=== PATIENT | male | born 1970 | race Caucasian/White ===

== ENCOUNTER → 2017-10-19 11:33 | Emergency (ER) | payer SELFPAY ==
[~2017-10-19 11:33] MED LIST: Tetan/Diph/Pertus SYR(Tdap)* 0.5 ML SYR(BOOSTRIX) use SYR IM ONE
[2017-10-19 12:32] LABS: ABS Basophils 0.1 10^3/ul (0-0.2); ABS Eosinophils 0.3 10^3/ul (0-0.6); ABS Lymphocytes 1.1 10^3/ul (1.0-4.8); ABS Monocytes 0.7 10^3/ul (0-0.8); ABS Nucleated RBC 0 10^3/ul; Eosinophil % 4.1 % (0-6); Hematocrit 44 % (42-52); Hemoglobin 15.3 g/dl (14.0-18.0); Lymphocyte % 13.2 % (25-47); Mean Corpuscular HGB Conc 35 g/dl (31-36); Mean Corpuscular Hemoglobin 30 pg (27-31); Mean Corpuscular Volume 85 fL (80-94); Mean Platelet Volume 8.3 um3 (7.4-10.4); Nucleated Red Blood Cells % 0.1; Platelet Count 236 10^3/ul (150-450); Red Blood Count 5.19 10^6/ul (4.0-5.4); Red Cell Distribution Width 13 % (10.5-15); White Blood Count 8.2 10^3/ul (3.5-10.8)
[2017-10-19 13:03] LABS: EGFR Non-African American 98.9 (>60)
[2017-10-19 14:11] VITALS: BP 00/00
--- NOTE | 2017-10-19 14:32 | ED ---
Andreas Garrett Tecjoon, scribed for Shayan Del Castillo MD on 10/19/17 at 1158 . - HPI Summary HPI Summary: This patient is a 47 year old male presenting to [facility] accompanied by sergeant with a chief complaint of needlestick since approx. a few hours ago. 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 Suspects state that the needle was used to suck heroin out of tin and had not made contact with human skin/blood. Patient is still worried about various infections. - History of Current Complaint Chief Complaint: EDExposureBodyFluid Stated Complaint: EXPOSURE Time Seen by Provider: 10/19/17 11:47 Date of Incident: 10/19/17 Job Performing at Time of Incident: Searching car Needlestick: Hollow Needle Blood on Needle: No Depth of Needlestick: Scratch Bleeding at Site: Yes Body Fluid Exposure: Blood Treatment CST: Expressed Blood PMH/Surg Hx/FS Hx/Imm Hx Previously Healthy: Yes Endocrine/Hematology History: Reports: Hx Anticoagulant Therapy - Aspirin Cardiovascular History: Reports: Hx Hypertension Infectious Disease History: No Infectious Disease History: Denies: Traveled Outside the [place] in Last 30 Days - Family History Known Family History: Positive: Hypertension - Social History Occupation: Employed Full-time Lives: With Family Alcohol Use: None Hx Substance Use: No Substance Use Type: Reports: None Hx Tobacco Use: No Smoking Status (MU): Never Smoked Tobacco Review of Systems Negative: Fever Positive: Other - needlestick on left index finger All Other Systems Reviewed And Are Negative: Yes Physical Exam - Summary Physical Exam Summary: Appearance: Well appearing, no pain distress Skin: warm, dry, reflects adequate perfusion Head/face: normal Eyes: EOMI, ROBERTO ENT: normal Neck: supple, non-tender Respiratory: CTA, breath sounds present Cardiovascular: RRR, pulses symmetrical Abdomen: non-tender, soft Bowel Sounds: present Musculoskeletal: normal, strength/ROM intact Neuro: normal, sensory motor intact, A&Ox3 Triage Information Reviewed: Yes Vital Signs On Initial Exam: Initial Vitals Temp Pulse Resp BP Pulse Ox 97.5 F 81 17 133/86 97 10/19/17 11:36 10/19/17 11:36 10/19/17 11:36 10/19/17 11:36 10/19/17 11:36 Vital Signs Reviewed: Yes Diagnostics - Vital Signs Vital Signs Temp Pulse Resp BP Pulse Ox 10/19/17 11:36 97.5 F 81 17 133/86 97 - Laboratory Lab Results: Lab Results 10/19/17 10/19/17 10/19/17 Range/Units 12:15 12:15 12:15 WBC 8.2 (3.5-10.8) 10^3/ul RBC 5.19 (4.0-5.4) 10^6/ul Hgb 15.3 (14.0-18.0) g/dl Hct 44 (42-52) % MCV 85 (80-94) fL MCH 30 (27-31) pg MCHC 35 (31-36) g/dl RDW 13 (10.5-15) % Plt Count 236 (150-450) 10^3/ul MPV 8.3 (7.4-10.4) um3 Neut % (Auto) 73.5 (38-83) % Lymph % (Auto) 13.2 L (25-47) % Concho % (Auto) 8.5 H (0-7) % Eos % (Auto) 4.1 (0-6) % Baso % (Auto) 0.7 (0-2) % Absolute Neuts (auto) 6.0 (1.5-7.7) 10^3/ul Absolute Lymphs (auto) 1.1 (1.0-4.8) 10^3/ul Absolute Monos (auto) 0.7 (0-0.8) 10^3/ul Absolute Eos (auto) 0.3 (0-0.6) 10^3/ul Absolute Basos (auto) 0.1 (0-0.2) 10^3/ul Absolute Nucleated RBC 0 10^3/ul Nucleated RBC % 0.1 Sodium 137 L (139-145) mmol/L Potassium 3.9 (3.5-5.0) mmol/L Chloride 103 (101-111) mmol/L Carbon Dioxide 28 (22-32) mmol/L Anion Gap 6 (2-11) mmol/L BUN 11 (6-24) mg/dL Creatinine 0.83 (0.67-1.17) mg/dL Est GFR ( Amer) 127.2 (>60) Est GFR (Non-Af Amer) 98.9 (>60) BUN/Creatinine Ratio 13.3 (8-20) Glucose 94 (70-100) mg/dL Calcium 9.0 (8.6-10.3) mg/dL Total Bilirubin 1.00 (0.2-1.0) mg/dL AST 24 (13-39) U/L ALT 36 (7-52) U/L Alkaline Phosphatase 79 (34-104) U/L Total Protein 6.9 (6.4-8.9) g/dL Albumin 4.8 (3.2-5.2) g/dL Globulin 2.1 (2-4) g/dL Albumin/Globulin Ratio 2.3 (1-3) Hepatitis B Antibody Not immune A (Immune) Hep Bs Antigen Nonreactive (Nonreactive) Hep Bs Antibody, Quant < 3.10 (>12) mIU/mL Hepatitis C Antibody Pending HIV 1&2 Antibody Rapid Nonreactive (Nonreactive) Result Diagrams: 10/19/17 12:15 10/19/17 12:15 Lab Statement: Any lab studies that have been ordered have been reviewed, and results considered in the medical decision making process. Needlestick Course/Dx - Course Course Of Treatment: This patient is a 47 year old male presenting to [facility] accompanied by sergeant with a chief complaint of needlestick since approx. a few hours ago. 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 Bloodwork Obtained. Test results with no significant abnormalities. In the ED course the patient was given Boostrix. Patient will be discharged with a diagnosis of needlestick injury. Called [facility] -- they are unavailable. Counseled pt regarding PEP, knowing sources are - HIV. Pt refused PEP. Patient is advised to follow up with PCP in 3 days. The patient is agreeable with this plan. - Diagnoses Provider Diagnoses: Needlestick injury accident Discharge - Sign-Out/Discharge Documenting (check all that apply): Discharge - Discharge Plan Condition: Good Disposition: HOME Patient Education Materials: Postexposure Prophylaxis (ED) Referrals: Eileen GARCIA,Jax Gomez [Medical Doctor] - Additional Instructions: Your employer may have an occupational health doctor -- if so, get all follow up testing thru them. Return if worse, new symptoms or other concerns. - Billing Disposition and Condition Condition: GOOD Disposition: HOME The documentation as recorded by the Andreas grajeda Tecjoon accurately reflects the service I personally performed and the decisions made by , Shayan Del Castillo MD.
== END | disposition home or self-care (01) ==
LOC: ED 11:33
DX: S61.231A Puncture wound without foreign body of left index finger without damage to nail, initial encounter (principal); W46.1XXA Contact with contaminated hypodermic needle, initial encounter; Y92.89 Other specified places as the place of occurrence of the external cause
CPT/HCPCS: 36415; 80053; 85025; 86703; 86706; 86803; 87340; 90471; 90715; 99281

== ENCOUNTER 2017-11-21 10:33 | Emergency (ER) | payer SELFPAY ==
[2017-11-21 10:38] VITALS: BP 128/86
--- NOTE | 2017-11-21 10:45 | ED ---
Complex/Multi-Sys Presentation - HPI Summary HPI Summary: 39 male presents ER to have repeat blood work obtained after getting a needlestick 30 days ago. Patient was seen after the needlestick 30 days ago. States he needs repeat labs at 3 days, 3 months, 6 months. States everything was negative and the beginning including potential source patient's. No symptoms and no concerns. - History Of Current Complaint Chief Complaint: EDExposureBodyFluid Time Seen by Provider: 11/21/17 10:40 Hx Obtained From: Patient Severity Currently: None - Allergies/Home Medications Allergies/Adverse Reactions: Allergies Allergy/AdvReac Type Severity Reaction Status Date / Time meperidine [From Demerol] Allergy See Comment Verified 10/19/17 11:42 PMH/Surg Hx/FS Hx/Imm Hx Endocrine/Hematology History: Reports: Hx Anticoagulant Therapy - Aspirin Cardiovascular History: Reports: Hx Hypertension - Surgical History Surgery Procedure, Year, and Place: n/a - Immunization History Immunizations Up to Date: Yes Infectious Disease History: No Infectious Disease History: Denies: Traveled Outside the US in Last 30 Days - Family History Known Family History: Positive: Hypertension - Social History Alcohol Use: None Hx Substance Use: No Substance Use Type: Reports: None Hx Tobacco Use: No Smoking Status (MU): Never Smoked Tobacco Review of Systems Constitutional: Negative Cardiovascular: Negative Respiratory: Negative Gastrointestinal: Negative Musculoskeletal: Negative All Other Systems Reviewed And Are Negative: Yes Physical Exam Triage Information Reviewed: Yes Vital Signs On Initial Exam: Initial Vitals Temp Pulse Resp BP Pulse Ox 97.6 F 75 16 128/86 100 11/21/17 10:35 11/21/17 10:35 11/21/17 10:35 11/21/17 10:35 11/21/17 10:35 Vital Signs Reviewed: Yes Appearance: Positive: Well-Appearing, No Pain Distress, Well-Nourished Skin: Positive: Warm, Skin Color Reflects Adequate Perfusion, Dry Head/Face: Positive: Normal Head/Face Inspection ENT: Positive: Normal ENT inspection, Hearing grossly normal, Pharynx normal Neck: Positive: Supple, Nontender Respiratory/Lung Sounds: Positive: Clear to Auscultation, Breath Sounds Present. Negative: Rales, Rhonchi, Wheezes Cardiovascular: Positive: Normal, RRR, Pulses are Symmetrical in both Upper and Lower Extremities Abdomen Description: Positive: Nontender, Soft Bowel Sounds: Positive: Present Musculoskeletal: Positive: Normal, Strength/ROM Intact Neurological: Positive: Normal, Sensory/Motor Intact, Alert, Oriented to Person Place, Time Diagnostics - Vital Signs Vital Signs Temp Pulse Resp BP Pulse Ox 11/21/17 10:35 97.6 F 75 16 128/86 100 - Laboratory Lab Statement: Any lab studies that have been ordered have been reviewed, and results considered in the medical decision making process. Complex Multi-Symp Course/Dx Course Of Treatment: Repeat hepatitis and HIV labs were obtained. We'll wait for results and if positive patient will get a phone call. Is asymptomatic at this time. Return in 60 days for 3 month blood work - Diagnoses Provider Diagnoses: Normal physical examination, Encounter for HCV screening test for low risk patient Discharge - Sign-Out/Discharge Documenting (check all that apply): Discharge/Admit/Transfer - Discharge Plan Condition: Good Disposition: HOME Referrals: Abisai Thompson MD [Primary Care Provider] - Additional Instructions: please return for repeat blood work in 60 days you will hear about results if positive. - Billing Disposition and Condition Condition: GOOD Disposition: HOME
== END 2017-11-21 10:53 | disposition home or self-care (01) ==
LOC: ED 10:33
DX: Z77.21 Contact with and (suspected) exposure to potentially hazardous body fluids (principal)
CPT/HCPCS: 36415; 80074; 86703; 86706; 87340; 99281

== ENCOUNTER 2018-01-17 10:42 | Emergency (ER) | payer OTHER ==
[2018-01-17 11:07] VITALS: BP 128/85
--- NOTE | 2018-01-17 14:07 | ED ---
Kael Garrett Angela, scribed for Shayan Del Castillo MD on 01/17/18 at 1047 . - HPI Summary HPI Summary: This pt is a 47 y/o male presenting to [facility] for a repeat blood work 3 months s/ p needlestick injury. 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 The needle was an old needle. He was seen on 11/21/17 for a repeat blood work. Pt denies any symptoms currently. He states he has been feeling well after the needlestick injury. PMHx: HTN, high cholesterol. 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 PMH/Surg Hx/FS Hx/Imm Hx Endocrine/Hematology History: Reports: Hx Anticoagulant Therapy - Aspirin Denies: Hx Diabetes Cardiovascular History: Reports: Hx Hypertension, Other Cardiovascular Problems/ Disorders - High cholesterol GI History: Reports: Hx Gastroesophageal Reflux Disease - Surgical History Surgery Procedure, Year, and Place: n/a - Family History Known Family History: Positive: Hypertension - Social History Alcohol Use: None Hx Substance Use: No Substance Use Type: Reports: None Hx Tobacco Use: No Smoking Status (MU): Never Smoked Tobacco Review of Systems Negative: Fever, Chills ENT: Negative Cardiovascular: Negative Respiratory: Negative Gastrointestinal: Negative Genitourinary: Negative Musculoskeletal: Negative All Other Systems Reviewed And Are Negative: Yes Physical Exam - Summary Physical Exam Summary: Appearance: Well appearing, no pain distress Skin: warm, dry, reflects adequate perfusion Head/face: normal Eyes: EOMI, ROBERTO ENT: normal Neck: supple, non-tender Respiratory: CTA, breath sounds present Cardiovascular: RRR, pulses symmetrical and regular Abdomen: non-tender, soft Bowel: present Musculoskeletal: normal, strength/ROM intact Neuro: normal, sensory motor intact, A&Ox3 Triage Information Reviewed: Yes Vital Signs On Initial Exam: Initial Vitals Temp Pulse Resp BP Pulse Ox 96.9 F 71 19 132/96 97 01/17/18 10:47 01/17/18 10:47 01/17/18 10:47 01/17/18 10:47 01/17/18 10:47 Vital Signs Reviewed: Yes Diagnostics - Vital Signs Vital Signs Temp Pulse Resp BP Pulse Ox 01/17/18 10:59 96.9 F 74 18 128/85 96 01/17/18 10:47 96.9 F 71 19 132/96 97 - Laboratory Lab Results: Lab Results 01/17/18 Range/Units 10:58 Hepatitis B Antibody Not immune A (Immune) Hep Bs Antibody, Quant < 3.10 (>12) mIU/mL Hepatitis C Antibody Nonreactive (Nonreactive) HIV 1&2 Antibody Pending Lab Statement: Any lab studies that have been ordered have been reviewed, and results considered in the medical decision making process. Needlestick Course/Dx - Course Course Of Treatment: Here for follow-up after a needlestick injury in the field. Has not followed up with his doctor or public health. Repeated hep B given he was not a responder to vaccination, C and HIV. His prior laboratories were all negative. - Diagnoses Provider Diagnoses: Needlestick injury accident with exposure to body fluid Discharge - Sign-Out/Discharge Documenting (check all that apply): Discharge/Admit/Transfer - Discharge - Discharge Plan Condition: Good Disposition: HOME Patient Education Materials: Needle Stick Injuries (ED) Referrals: Abisai Thompson MD [Primary Care Provider] - Additional Instructions: See your doctor to initiate hepatitis B vaccine series. Your doctor can continue the post exposure surveillance. - Billing Disposition and Condition Condition: GOOD Disposition: Home The documentation as recorded by the Kael grajeda Angela accurately reflects the service I personally performed and the decisions made by , Shayan Del Castillo MD.
== END 2018-01-17 10:59 | disposition home or self-care (01) ==
LOC: ED 10:42
DX: T14.8XXA Other injury of unspecified body region, initial encounter (principal); W46.0XXA Contact with hypodermic needle, initial encounter; Y93.89 Activity, other specified; Y92.810 Car as the place of occurrence of the external cause; Y99.0 Civilian activity done for income or pay
CPT/HCPCS: 36415; 86703; 86706; 86707; 86803; 99282

== ENCOUNTER 2018-04-27 09:06 | Emergency (ER) | payer OTHER ==
[2018-04-27 09:34] VITALS: BP 127/91
--- NOTE | 2018-04-27 09:49 | ED ---
- HPI Summary HPI Summary: Patient is a 47-year-old male who presents emergency department for follow-up blood work. Knee needlestick that occurred in October. 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 Pt. has been following up in the ER for repeat testing of hepatitis and HIV. Pt. has no complaints today. Symptoms are mild in severity. Reactivity has been negative thus far. No current modifying factors. - History of Current Complaint Chief Complaint: EDGeneral Stated Complaint: NEEDLE STICK/NEEDS BLOODWORK Time Seen by Provider: 04/27/18 09:38 PMH/Surg Hx/FS Hx/Imm Hx Previously Healthy: Yes Endocrine/Hematology History: Reports: Hx Anticoagulant Therapy - Aspirin Denies: Hx Diabetes Cardiovascular History: Reports: Hx Hypertension, Other Cardiovascular Problems/ Disorders - High cholesterol GI History: Reports: Hx Gastroesophageal Reflux Disease - Surgical History Surgery Procedure, Year, and Place: n/a Infectious Disease History: No Infectious Disease History: Denies: Traveled Outside the US in Last 30 Days - Family History Known Family History: Positive: Hypertension - Social History Alcohol Use: None Hx Substance Use: No Substance Use Type: Reports: None Hx Tobacco Use: No Smoking Status (MU): Never Smoked Tobacco Review of Systems All Other Systems Reviewed And Are Negative: Yes Physical Exam Triage Information Reviewed: Yes Vital Signs On Initial Exam: Initial Vitals Temp Pulse Resp BP Pulse Ox 97.9 F 82 17 127/91 97 04/27/18 09:28 10 09:28 10 09:28 04/27/18 09:28 04/27/18 09:28 Vital Signs Reviewed: Yes Appearance: Positive: Well-Appearing - Pt. sitting on bed in NAD. Skin: Positive: Warm, Dry Head/Face: Positive: Normal Head/Face Inspection Eyes: Positive: Normal, EOMI Neck: Positive: Supple Neurological: Positive: Normal, CN Intact II-III Psychiatric: Positive: Affect/Mood Appropriate Diagnostics - Vital Signs Vital Signs Temp Pulse Resp BP Pulse Ox 04/27/18 09:28 97.9 F 82 17 127/91 97 - Laboratory Lab Statement: Any lab studies that have been ordered have been reviewed, and results considered in the medical decision making process. Needlestick Course/Dx - Course Course Of Treatment: Blood work ordered. Pt. to f.u with PCP. - Diagnoses Provider Diagnoses: Needlestick injury accident Discharge - Sign-Out/Discharge Documenting (check all that apply): Patient Departure - Discharge Plan Condition: Good Disposition: HOME Patient Education Materials: Needle Stick Injuries (ED) Referrals: Abisai Thompson MD [Primary Care Provider] - - Billing Disposition and Condition Condition: GOOD Disposition: Home
--- OUTSIDE RECORDS SUMMARY | 2018-04-27 09:52 | XMS REPORT | Continuity of Care Document ---
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 Abisai Thompson MD Primary Care Physician Unavailable Payers Type Date Identification Numbers Payment Provider Subscriber Effective: Policy Number: [id number] [facility] 2013 Group Name: [id number] [facility] [id number] PayID: [id number] ZANDRA Elise [id number] Advance Directives Description No Information Available Problems Date Description Provider Status Onset: 04/17/2018 Gastroesophageal reflux disease Kelli Saucedo MD Active Family History Description No Information Available Social History Type Date Description Comments Sex Unknown ETOH Use Occasionally consumes alcohol Tobacco Use Start: Unknown Patient has never smoked Smoking Status Reviewed: 04/17/18 Patient has never smoked Allergies, Adverse Reactions, Alerts Date Description Reaction Status Severity Comments 04/13/2018 Demerol Active Medications Medication Date Status Form Strength Qnty SIG Indications Ordering Provider Pantoprazole Active Tablets DR 40mg 1 by Unknown Sodium 000 mouth every day Lisinopril 0 Active Tablets 10mg 1 by Unknown 000 mouth every day Crestor 0 Active Tablets 40mg 1 by Unknown 000 mouth every day Tylenol Extra Hx Tablets 500mg 2 twice a Unknown Strength 000 - day as needed 018 Immunizations Description No Information Available Vital Signs Date Vital Result Comment 04/17/2018 10:25am BP Systolic 118 mmHg BP Diastolic 81 mmHg Heart Rate 77 /min Height 70 inches 5'10" Weight 210.00 lb BMI (Body Mass Index) 30.1 kg/m2 Body Temperature 97.2 F Results Description No Information Available Procedures Description No Information Available Encounters Description No Information Available Plan of Treatment Future Appointment(s):07/31/2018 7:45 am - Kelli Saucedo MD at [place] [address]
== END 2018-04-27 10:25 | disposition home or self-care (01) ==
LOC: ED 09:06
DX: S89.90XA Unspecified injury of unspecified lower leg, initial encounter (principal); W46.0XXA Contact with hypodermic needle, initial encounter; Y92.89 Other specified places as the place of occurrence of the external cause; Y99.0 Civilian activity done for income or pay; Z79.82 Long term (current) use of aspirin; I10 Essential (primary) hypertension; E78.00 Pure hypercholesterolemia, unspecified; K21.9 Gastro-esophageal reflux disease without esophagitis
CPT/HCPCS: 36415; 82607; 83735; 86703; 86706; 86707; 86803; 99282

== ENCOUNTER 2019-08-02 13:06 | Emergency (ER) | payer SELFPAY ==
--- OUTSIDE RECORDS SUMMARY | 2019-08-02 13:27 | XMS REPORT | Continuity of Care Document ---
:1970 External Reference #:[id number] Author Name Abisai Thompson M.D. Address [address] [place] [address], [address] [place] [address] Care Team Providers Name Role Phone Chago Billy M.D. - Care Team Information Film Maker [phone] Cardiovascular Disease [facility] Care Team Information Film Maker [phone] Kelli Saucedo M.D. - Care Team Information Film Maker [phone] Gastroenterology Solo Martinez MD - Urology Care Team Information Film Maker [phone] Problems Active Problems Provider Date Mixed hyperlipidemia Yonas Ruff M.D. Onset: 01/05/2011 Benign essential hypertension Yonas Ruff M.D. Onset: 01/05/2011 Gastroesophageal reflux disease Anne Paulson R.N.,F.N.P. Onset: 2010 Essential hypertension [facility] Onset: 05/16/2015 Social History Type Date Description Comments Sex Unknown Cigarette Use Negative For current cigarette smoker ETOH Use Rarely consumes alcohol Tobacco Use Start: Unknown Patient has never smoked Smoking Status Reviewed: 07/27/19 Patient has never smoked Allergies, Adverse Reactions, Alerts Active Allergies Reaction Severity Comments Date Demerol 09/18/2003 Medications Active Medications SIG Qnty Indications Ordering Date Provider Rosuvastatin Calcium Take 1 Tablet By margaret Soria 07/26/2018 Mouth Once Daily M.DJb 40mg Tablets Lisinopril 1 by mouth every Chago Billy 10mg Tablets justin Dominguez M.D. Nizatidine 1-2 times daily Unknown 150mg prn for heartburn Capsules Immunizations CPT Code Status Date Vaccine Lot # [id number] Ordered 04/11/2017 Afluria, 0.5mL Flu Vaccine Vital Signs Date Vital Result Comment 07/27/2019 10:50am Weight 203.00 lb Height 69 inches 5'9" BP Systolic 122 mmHg BP Diastolic 86 mmHg Heart Rate 82 /min Respiratory Rate 18 /min BMI (Body Mass Index) 30.0 kg/m2 07/17/2018 10:41am Weight 203.00 lb Height 69 inches 5'9" BP Systolic 114 mmHg BP Diastolic 72 mmHg Heart Rate 75 /min BMI (Body Mass Index) 30.0 kg/m2 Results Test Acquired Date Facility Test Result H/L Range Note Laboratory test 07/27/2019 [facility] PSA 0.82 ng/mL 0-4.0 1 finding [address] [place] [address] [phone] Lipid Studies 07/27/2019 [facility] Triglycerides 93 mg/dL 0-149 [address] [place] [address] [phone] Cholesterol 133 mg/dL 120-200 HDL Cholesterol 47.0 mg/dL 40-60 VLDL (Calc.) 19 mg/dL <31 Cholesterol/HDL 2.83 Ratio <5.00 LDL (Calc.) 67 mg/dL 0-99 2 Comp. Metabolic 07/27/2019 [facility] Glucose 91.0 mg/dL 65 -110 [address] [place] [address] [phone] BUN 14.8 mg/dL 7-21 Co2 25.2 mmol/L 22-30 Sodium 142 mmol/L 137-145 Potassium 4.6 mmol/L 3.6-5.2 Chloride 106 mmol/L 98-110 Calcium 9.8 mg/dL 9-10.8 Creatinine 0.93 mg/dL 0.52-1.25 eGFR (Male) >60 3 Total Protein 6.91 g/dL 6.3-8.2 Albumin 4.37 g/dL 3.3-4.6 Sgot (Ast) 27.0 U/L 5-40 Alk Phosphatase 79.0 U/L 38-126 Total Bilirubin 0.82 mg/dL 0.2-1.3 SGPT (Alt) 40.0 U/L 7-56 Anion Gap (Calc) 10.8 7-16 BUN/Crea Ratio 15.9 Ratio 7-25 Globulin (Calc) 2.54 g/dL 2.3-3.5 A/G Ratio (Calc) 1.7 Ratio 1.1-2.2 Laboratory test 07/27/2019 [facility] TSH 0.81 uIU/mL 0.5- 6.[address] [place] [address] [phone] 1 mail copy to patient 2 LDL(Calc.) invalid if triglycerides >400. 3 For Patients, multiply result by 1.159 Units expressed as mL/min/1.73m^2 Normal Range is > or = to 60. Procedures Date Code Description Status 11/08/2014 [id number] Colonoscopy Completed Medical Devices Description No Information Available Encounters Type Date Location Provider Dx Diagnosis Office Visit 07/27/2019 Main Office Abisai Thompson M.D. Z00.00 Encntr for general 10:45a adult medical exam w/o abnormal findings I10 Essential (primary) hypertension E78.2 Mixed hyperlipidemia K21.9 Gastro-esophageal reflux disease without esophagitis Z12.5 Encounter for screening for malignant neoplasm of prostate Z71.3 Dietary counseling and surveillance Assessments Date Code Description Provider 07/27/2019 Z00.00 Encounter for general adult medical examination Abisai Thompson M.D. without abnormal findings 07/27/2019 I10 Essential (primary) hypertension Abisai Thompson M.D. 07/27/2019 E78.2 Mixed hyperlipidemia Abisai Thompson M.D. 07/27/2019 K21.9 Gastro-esophageal reflux disease without Abisai Thompson M.D. esophagitis 07/27/2019 Z12.5 Encounter for screening for malignant neoplasm Abisai Thompson M.D. of prostate 07/27/2019 Z71.3 Dietary counseling and surveillance Abisai Thompson M.D. 07/27/2019 Z12.5 Encounter for screening for malignant neoplasm Laboratory of prostate 07/27/2019 Z83.2 Family history of dis of the bld/bld-form Laboratory org/immun mechnsm 07/27/2019 E78.2 Mixed hyperlipidemia Laboratory Plan of Treatment Future Appointment(s):08/01/2020 8:30 am - Abisai Thompson M.D. at Main [id number] - Abisai Thompson M.D.Z00.00 Encounter for general adult medical examination without abnormal [id number] Essential (primary) lurcmdfpbcrxQ29.2 Mixed ydzrerjfaumxotB38.9 Gastro-esophageal reflux disease without nmdiyqnxhfkV68.5 Encounter for screening for malignant neoplasm of bpjffvcuC39.3 Dietary counseling and surveillanceAllFollow up:1 year 30 minutes COMPLETE, fasting blood work today Functional Status Description No Information Available Mental Status Description No Information Available Referrals Description No Information Available
--- OUTSIDE RECORDS SUMMARY | 2019-08-02 13:27 | XMS REPORT | Continuity of Care Document ---
:1970 Author Organization [facility] Care Team Providers Name Role Phone PARVIN WAN Consulting Physician KAYLAN BALLARD Admitting Physician KAYLAN BALLARD Attending Physician Allergies and Intolerances Code Code Allergy Type Reaction Severity Start End Status System Substance Date Date 416457 RXNorm Demerol Propensity to unknown Unknown Active adverse 0 reactions to drug (disorder) Medications RxNorm Medication Dose Route Instructions Start Date End Date Status 725474 Lisinopril 2.5 MG 2.5 mg oral orally every day at Active Oral Tablet bedtime 307077 pantoprazole 40 MG 40 mg oral orally every day at Active Delayed Release bedtime Oral Tablet 810940 Rosuvastatin 40 mg oral orally once daily Active calcium 40 MG Oral at bedtime Tablet Medications At Time Of Discharge RxNorm Medication Dose Route Instructions Start Date End Date Status 839545 Lisinopril 2.5 MG 2.5 mg oral orally every day at Active Oral Tablet bedtime 309535 pantoprazole 40 MG 40 mg oral orally every day at Active Delayed Release bedtime Oral Tablet 237271 Rosuvastatin 40 mg oral orally once daily Active calcium 40 MG Oral at bedtime Tablet Problems Code Code System Problem Name Start Date End Date Status 528978665 SNOMED-CT Near syncope 05/09/2013 U Active 33977275 SNOMED-CT Esophageal varices 09/15/2012 U Active 768008960 SNOMED-CT Atypical chest pain 07/31/2012 05:00 U Completed 967988839 SNOMED-CT Atypical chest pain 07/31/2012 05:00 Active 75819157 SNOMED-CT Atrial fibrillation U Active 68078061 SNOMED-CT Esophageal varices U Active 19243922 SNOMED-CT Hyperlipidemia U U Active 38692587 SNOMED-CT Benign hypertension U U Active 495965450 SNOMED-CT Paroxysmal atrial U U Active fibrillation 93238626 SNOMED-CT Hypertensive disorder U Active Procedures Code Code System Procedure Date ESOPHAGEAL VARICES CLIPPED 10/2012 Results Reference Laboratory Results Order: FACTOR 5 LEIDEN [SO] Specimen Source: Body Site: [facility] Code Test Result Flag Range Units Date 1F5 gene targeted Comment 07/27/2019 11:25:00 mutation anal AM Note: Result: Negative (no mutation found) . Factor V Leiden is a specific mutation ([id number]) in the factor V gene that is associated with an increased risk of venous thrombosis. Factor V Leiden is more resistant to inactivation by activated protein C. As a result, factor V persists in the circulation leading to a mild hyper- coagulable state. The Leiden mutation accounts for 90% - 95% of APC resistance. Factor V Leiden has been reported in patients with deep vein thrombosis, pulmonary embolus, central retinal vein occlusion, cerebral sinus thrombosis and hepatic vein thrombosis. Other risk factors to be considered in the workup for venous thrombosis include the [id number] mutation in the factor II (prothrombin) gene, protein S and C deficiency, and antithrombin deficiencies. Anticardiolipin antibody and lupus anticoagulant analysis may be appropriate for certain patients, as well as homocysteine levels. . Contact your local [facility] for information on how to order additional testing if desired. . Genetic counselors are available for health care providers to discuss results at [phone] ([phone]). . Methodology: DNA analysis of the Factor V gene was performed by allele-specific PCR. The diagnostic sensitivity and specificity is >99% for both. Molecular-based testing is highly accurate, but as in any laboratory test, diagnostic errors may occur. All test results must be combined with clinical information for the most accurate interpretation. . This test was developed and its performance characteristics [facility]. It has not been cleared or approved by the Food and Drug Administration. . References: Lennox Min (1995). Clin Lab Med 16:169-186. . Echo Cardenas, PhD, [facility] Shahana Schaeffer, PhD, [facility] Stephanie ChristopherS., PhD, FAC Sammie Farooq, PhD, [facility] Devante Pena, PhD, [facility] Marcell Juan PhD, [facility] Performing Lab Footnotes:[facility] [address] , [place] [id number] JAMIE [id number] Social History Code Code System Social History Description Dates Observed Observation [id number] SNOMED CT Current Smoking Unknown if ever Status smoked UNK AdministrativeGender Sex Assigned At Unknown Vital Signs No data in the system Goals Section No data in the system Health Concerns No data in the systemEncounter Diagnosis Date Code Code System Diagnosis Status Z83.2 ICD10 FAM HX DZ BLOOD&BFO D/O IMMUNE [facility] Active Advance Directives PT STATES NO ADVANCE DIRECTIVES Directive Type Effective Date 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 07/27/2019 Family History Relationship: Mother Health Problem Age At Onset Notes Adult diabetes diet Relationship: Brother Health Problem Age At Onset Notes Adult onset diabetes (Diabetes mellitus type 2) Relationship: Maternal Grandfather () Health Problem Age At Onset Notes CARDIAC Functional Status No data in the system Immunizations No data in the system Medical Equipment No data in the system Mental Status No data in the system Assessment and Plan Assessments No data in the systemPlan Of Treatment No data in the systemPending Tests No data in the system Hospital Discharge Instructions No data in the system Reason for Visit No data in the system
--- NOTE | 2019-08-02 14:10 | ED ---
Upper Extremity Pain - HPI Summary HPI Summary: The patient is a 48 y/o male presenting to [facility] with a chief complaint of pain in the left shoulder onset this morning. 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 He heard a popping noise in the shoulder, and he is now feeling pain in the left shoulder radiating into the neck and to the elbow. There is decreased ROM in the shoulder secondary to pain. He rates the soreness 7/10 in severity. He denies any fever, chills, erythema of eyes, sore throat, chest pain, shortness of breath, cough, abdominal pain, nausea, vomiting, dysuria, hematuria, myalgia , edema, rash, or dizziness. PMHx: HTN, HLD, GERD. Nonsmoker, no EtOH, no substance use. Medications reviewed. Allergies noted. - History of Current Complaint Chief Complaint: EDExtremityUpper Stated Complaint: LEFT SHOULDER INJURY PER PT Time Seen by Provider: 08/02/19 13:59 Hx Obtained From: Patient Mechanism Of Injury: Twisted Onset/Duration: Started Hours Ago, Still Present Timing: Constant Severity Initially: Mild Severity Currently: Moderate Pain Location: Shoulder, Arm Character: Aching Aggravating Factor(s): Movement Alleviating Factor(s): Rest Associated Signs & Symptoms: Positive: Neck Pain - radiating from shoulder. Negative: Fever, Chest Pain, SOB, Nausea, Vomiting, Other - chills, erythema of eyes, sore throat, cough, abdominal pain, nausea, vomiting, dysuria, hematuria, myalgia, edema, rash, dizziness - Allergies/Home Medications Allergies/Adverse Reactions: Allergies Allergy/AdvReac Type Severity Reaction Status Date / Time meperidine [From Demerol] Allergy See Comment Verified 08/02/19 13:21 PMH/Surg Hx/FS Hx/Imm Hx Endocrine/Hematology History: Reports: Hx Anticoagulant Therapy - Aspirin Denies: Hx Diabetes Cardiovascular History: Reports: Hx Hypercholesterolemia, Hx Hypertension, Other Cardiovascular Problems/Disorders - High cholesterol GI History: Reports: Hx Gastroesophageal Reflux Disease - Surgical History Surgical History: None Surgery Procedure, Year, and Place: n/a Infectious Disease History: No Infectious Disease History: Denies: Traveled Outside the [place] in Last 30 Days - Family History Known Family History: Positive: Hypertension - Social History Alcohol Use: None Hx Substance Use: No Substance Use Type: Reports: None Hx Tobacco Use: No Smoking Status (MU): Never Smoked Tobacco Review of Systems Negative: Fever, Chills Negative: Erythema Negative: Sore Throat Negative: Chest Pain Negative: Shortness Of Breath, Cough Negative: Abdominal Pain, Vomiting, Nausea Negative: dysuria, hematuria Positive: Myalgia - left shoulder into neck and elbow, Decreased ROM - left shoulder secondary to pain. Negative: Edema Negative: Rash Neurological: Other - Negative: dizziness All Other Systems Reviewed And Are Negative: Yes Physical Exam - Summary Physical Exam Summary: Constitutional: Well-developed, Well-nourished, Alert. (-) Distressed Skin: Warm, Dry HENT: Normocephalic; Atraumatic Eyes: Conjunctiva normal Neck: Musculoskeletal ROM normal neck. (-) JVD, (-) Stridor, (-) Tracheal deviation Cardio: Rhythm regular, rate normal, Heart sounds normal; Intact distal pulses; The pedal pulses are 2+ and symmetric. Radial pulses are 2+ and symmetric. (-) Murmur Pulmonary/Chest wall: Effort normal. (-) Respiratory distress, (-) Wheezes, (-) Rales Abd: Soft, (-) tenderness, (-) Distension, (-) Guarding, (-) Rebound Musculoskeletal: Slightly diminished strength of the left arm with elbow flexion , No biceps deformity (no suspicion for biceps tendon rupture), Diminished left shoulder ROM, (-) Edema Lymph: (-) Cervical adenopathy Neuro: Alert, Oriented x3 Psych: Mood and affect Normal Triage Information Reviewed: Yes Vital Signs On Initial Exam: Initial Vitals Temp Pulse Resp BP Pulse Ox 97.5 F 82 18 127/93 97 08/02/19 13:16 08/02/19 13:16 08/02/19 13:16 08/02/19 13:16 08/02/19 13:16 Vital Signs Reviewed: Yes Procedures - Sedation Patient Received Moderate/Deep Sedation with Procedure: No Diagnostics - Vital Signs Vital Signs Temp Pulse Resp BP Pulse Ox 08/02/19 13:16 97.5 F 82 18 127/93 97 - Laboratory Lab Statement: Any lab studies that have been ordered have been reviewed, and results considered in the medical decision making process. 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 ED physician has reviewed this report. Course/Dx - Course Course Of Treatment: Patient is a 48 y/o male who is suffering from pain in the left shoulder radiating into the neck and to the elbow onset this morning after dealing with an erratic person while on duty. There is decreased ROM in the shoulder secondary to pain, but he denies any other symptoms Physical exam reveals slightly diminished strength in the left arm for elbow flexion and diminished ROM in the shoulder without any bicep deformity. I do no suspect biceps tendon rupture. Shoulder XR is positive for AC joint arthritis but negative for fracture. He declined any pain medications but was advised to use Tylenol or Iuprofen at home as needed. His arm was placed in a sling. 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 Patient understands and agrees with plan. - Diagnoses Provider Diagnoses: Biceps strain, Rotator cuff injury Discharge ED - Sign-Out/Discharge Documenting (check all that apply): Patient Departure - Patient will be discharged home. - Discharge Plan Condition: Stable Disposition: HOME Patient Education Materials: Shoulder Sprain (ED) Referrals: Abisai Thompson MD [Primary Care Provider] - 3 Days Kelvin Villalobos MD [Medical Doctor] - 5 Days Additional Instructions: Follow up with Dr. Villalobos from orthopedics in 3-5 days. Follow up with your primary care provider as needed. Take Tylenol and Ibuprofen for pain relief. Return to the emergency department for any new or worsening symptoms. You may return to work after being cleared by orthopedics or if you are able to do light duty. - Attestation Statements Document Initiated by Natyibe: Yes Documenting Scribe: Cherelle Ellison Provider For Whom Vijay is Documenting (Include Credential): Dr. Paras Lange MD Scribe Attestation: I, stephany Smith for Dr. Paras Lange MD on 08/02/19 at 1415. Status of Scribe Document: Ready
[2019-08-02 14:29] VITALS: BP 136/86
== END 2019-08-02 14:28 | disposition home or self-care (01) ==
LOC: ED 13:06
DX: S46.212A Strain of muscle, fascia and tendon of other parts of biceps, left arm, initial encounter (principal); S46.009A Unspecified injury of muscle(s) and tendon(s) of the rotator cuff of unspecified shoulder, initial encounter; M54.2 Cervicalgia; M25.512 Pain in left shoulder; Z79.01 Long term (current) use of anticoagulants; E78.00 Pure hypercholesterolemia, unspecified; I10 Essential (primary) hypertension; K21.9 Gastro-esophageal reflux disease without esophagitis; X50.9XXA Other and unspecified overexertion or strenuous movements or postures, initial encounter; Y92.9 Unspecified place or not applicable
CPT/HCPCS: 99282